=== PATIENT | female | born 2005 | race Caucasian/White ===

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

== ENCOUNTER → 2025-01-01 | Outpatient (REF) | payer OTHER, MEDICAID | LOC: M LAB REF 17:17 | PROVIDERS: ATTEND Physician Assistant | DX: J02.9 Acute pharyngitis, unspecified (principal) ==

== ENCOUNTER 2025-02-26 08:22 | Emergency (ER) | payer OTHER ==
[~2025-02-26] VITALS: Ht 154.9 cm; Wt 53.7 kg
[2025-02-26] MEDS: ONDANSETRON 4MG 2ML VIAL IV ONE (08:56)
[2025-02-26] MEDS: NS (Normal Saline) 0.9% 1,000 ML IV ONE ×2 (08:56→10:40)
[2025-02-26 09:25] LABS: BASO # 0.1 10^3/uL (0.0-0.2); BASO % 0.6 % (0.0-1.0); EOS # 0.0 10^3/uL (0.0-0.5); EOS % 0.4 % (0.0-3.0); LYMPH # 2.0 10^3/uL (1.5-5.0); LYMPH % 19.4 % (24.0-44.0); MONO # 0.4 10^3/uL (0.0-0.8); MONO % 3.8 % (2.0-8.0); NEUTROPHILS # 7.8 10^3/uL (1.5-8.5); NEUTROPHILS % 75.7 % (36.0-66.0); PLATELET COUNT, AUTOMATED 209 10^3/uL (150-450)
[2025-02-26 10:13] LABS: HIV 1&2 SCREEN NEGATIVE (NEGATIVE)
[2025-02-26 10:19] LABS: HCG, SERUM QUANTITATIVE 43351.2 MIU/ML (<4.2)
[2025-02-26 11:03] LABS: APPEARANCE, URINE HAZY (CLEAR); BACTERIA, URINE AUTO NEGATIVE (NEGATIVE); BILIRUBIN, URINE AUTO NEGATIVE (NEGATIVE); BLOOD, URINE BLOOD NEGATIVE (NEGATIVE); GLUCOSE, URINE (UA) AUTO NEGATIVE (NEGATIVE); KETONE, URINE AUTO 2+ mg/dL (NEGATIVE); LEUKOCYTE ESTERASE, URINE AUTO NEGATIVE (NEGATIVE); MUCUS, URINE SMALL (NEGATIVE); NITRITE, URINE AUTO NEGATIVE (NEGATIVE); PROTEIN, URINE AUTO 1+ mg/dL (NEGATIVE); RBC, URINE AUTO 2 /HPF (0-3); SPECIFIC GRAVITY URINE AUTO 1.028 (1.002-1.035); SQUAMOUS EPITHELIAL CELL UR AU 15 /HPF (0-6); UROBILINOGEN, URINE AUTO 0.2 mg/dL (0.0-2.0); WBC, URINE AUTO 4 /HPF (0-3)
[2025-02-26] MEDS ORDERED: ONDA-282 PO (11:22)
[2025-02-26 11:40] VITALS: BP 122/78; TEMP 97; O2SAT 100
[2025-02-26 13:02] LABS: GC DNA AMPLIFICATION NEGATIVE (NEGATIVE)
== END 2025-02-26 11:41 | disposition home or self-care (01) ==
LOC: M ED 08:22
DX: O21.0 Mild hyperemesis gravidarum (principal); Z91.041 Radiographic dye allergy status; Z3A.00 Weeks of gestation of pregnancy not specified; Z79.899 Other long term (current) drug therapy
CPT/HCPCS: 81001; 84702; 85025; 86780; 87086; 87389; 87810; 87850; 96361; 96374; 99284; J2405

== ENCOUNTER 2025-03-03 11:46 | Emergency (ER) | payer OTHER ==
[~2025-03-03] VITALS: Ht 154.9 cm; Wt 54.3 kg
[~2025-03-03 11:46] MED LIST changes: +ONDA-282 PO
[2025-03-03 11:48] VITALS: BP 140/83; TEMP 96.8; O2SAT 100
== END 2025-03-03 13:09 | disposition left against medical advice (07) ==
LOC: M ED 11:46
DX: Z53.21 Procedure and treatment not carried out due to patient leaving prior to being seen by health care provider (principal)